=== PATIENT | male | born 1970 | race Caucasian/White ===

== ENCOUNTER 2025-08-10 15:28 | Emergency (ER) | payer MEDICAID ==
[~2025-08-10] VITALS: Ht 172.7 cm; Wt 78.0 kg
[2025-08-10 15:31] VITALS: O2SAT 100
[2025-08-10] MEDS: KETOROLAC 15MG/ML VIAL IV ONE (16:38)
[2025-08-10] MEDS: ONDANSETRON HCL 4MG/2ML INJ IV ONE (16:38)
[2025-08-10] MEDS: MORPHINE SULFATE 4 MG/ML INJ (FOR IV/IM USE) IV ONE ×2 (16:38→19:06)
[2025-08-10 16:46] LABS: BASOPHILS % 0.4 % (0.0-2.0); EOSINOPHILS % 1.7 % (0.0-5.0); HEMATOCRIT. 36.2 % (42.0-52.0); HEMOGLOBIN. 11.9 g/dL (14.0-18.0); LYMPHOCYTES % 14.9 % (20.0-50.0); MEAN PLATELET VOLUME 8.0 fl (7.4-10.4); MONOCYTES % 8.1 % (2.0-8.0); NEUTROPHILS % 74.9 % (40.0-76.0); PLATELET 185 x1000/uL (130-400); RED BLOOD CELL COUNT 3.84 mill/uL (4.7-6.1); RED CELL DISTRIBUTION WIDTH 14.0 % (11.6-14.6)
[2025-08-10 17:02] LABS: CREATININE 1.0 mg/dL (0.6-1.3); UREA NITROGEN BLOOD 21 mg/dL (9-23)
[2025-08-10 17:03] LABS: TROPONIN I HIGH SENSITIVITY < 4 ng/L (3.0-53)
[2025-08-10 17:04] LABS: ASPARTATE AMINOTRANSFERASE 15 IU/L (<34); BILIRUBIN DIRECT 0.1 mg/dL (<=3.0); BILIRUBIN TOTAL 0.4 mg/dL (0.1-1.0); PROTEIN TOTAL 6.6 g/dL (6.0-8.3)
[2025-08-10 19:20] LABS: CLARITY URINE CLEAR (CLEAR); COLOR URINE YELLOW (YELLOW); GLUCOSE URINE NEGATIVE (NEGATIVE); KETONES URINE NEGATIVE (NEGATIVE); LEUKOCYTE ESTERASE URINE NEGATIVE (NEGATIVE); NITRITE URINE NEGATIVE (NEGATIVE); OCCULT BLOOD URINE NEGATIVE (NEGATIVE); PH URINE 5.5 (4.5-8.0); PROTEIN URINE TRACE (NEGATIVE); SPECIFIC GRAVITY URINE 1.020 (1.005-1.030); UROBILINOGEN URINE 0.2 E.U./dL (0.2-1.0)
[2025-08-10 19:46] LABS: BACTERIA URINE RARE; RBC URINE NONE SEEN /hpf (0-2); SQUAMOUS EPITHELIAL CELL URINE RARE /lpf (RARE/1+); WBC URINE 0-2 /hpf (0-2)
[2025-08-10 22:47] VITALS: BP 158/124; PULSE 96; RESP 17; TEMP 36.7; O2SAT 99
== END 2025-08-10 23:02 | disposition home or self-care (01) ==
LOC: ER 15:28 → EDBEDREQ 16:03 → ER 23:02 → CMPBEDREQ 08-11 11:53
DX: G89.29 Other chronic pain (principal); M54.9 Dorsalgia, unspecified; I10 Essential (primary) hypertension; E11.9 Type 2 diabetes mellitus without complications; R06.02 Shortness of breath
CPT/HCPCS: 99285; 71250; 96374; 96375; 71045; 80076; 80048; 81003; 83880; 83605; 83690; 83735; 85025; 84484; 36415; 74176; 93005; 96376; J1885; J2405; J2270